=== PATIENT | male | born 1995 | race Caucasian/White ===

== ENCOUNTER 2017-01-26 14:32 | Emergency (ER) | payer SELFPAY ==
[~2017-01-26] VITALS: Ht 193 cm; Wt 70.8 kg
[2017-01-26] MEDS ORDERED: PROP60CA8 PO (16:26)
[2017-01-26] MEDS ORDERED: DIVA125T2 PO (16:26)
[2017-01-26] MEDS ORDERED: BUSP7.5T3 PO (16:26)
[2017-01-26 16:38] LABS: ASPARTATE AMINO TRANSFERASE 14 U/L (15-37); BLOOD UREA NITROGEN 11 mg/dL (7-18)
[2017-01-26 17:25] VITALS: BP 111/68
== END 2017-01-26 17:27 | disposition home or self-care (01) ==
LOC: ED 17:21
DX: R07.89 Other chest pain (principal); F41.1 Generalized anxiety disorder
CPT/HCPCS: 36415; 71010; 80053; 80164; 85025; 93005